=== PATIENT | male | born 1985 | race African-American/Black ===

== ENCOUNTER 2023-04-29 17:59 | Emergency (ER) | payer SELFPAY ==
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
[2023-04-29 18:03] VITALS: BP 152/89; PULSE 102; RESP 18; TEMP 37.1; O2SAT 97; BMI 28.1
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
[2023-04-29 21:06] VITALS: BP 145/91; PULSE 69; RESP 18; TEMP 36.7; O2SAT 98
[2023-04-29] MEDS: Acetaminophen 325 MG TABLET 975 MG PO (21:18)
[2023-04-29] MEDS: Ibuprofen 600 MG TABLET PO (21:19)
== END 2023-04-29 22:35 | disposition home or self-care (01) ==
PROVIDERS: Emergency Provider Internal Medicine
DX: Z04.1 Encounter for examination and observation following transport accident (principal); Z04.2 Encounter for examination and observation following work accident; M54.50 Low back pain, unspecified; M25.562 Pain in left knee; M25.561 Pain in right knee
CPT/HCPCS: 72100; 73564; 99283; 99284